=== PATIENT | male | born 1985 | race Caucasian/White ===

== ENCOUNTER 2020-01-22 19:01 | Emergency (ER) | payer BC, OTHER ==
[2020-01-22 19:06] VITALS: BP 146/93; PULSE 66; TEMP 98; BMI 28.1
[2020-01-22] MEDS ORDERED: IBUPROFEN 600 MG TABLET (FP) PO ONE (19:29)
--- NOTE | 2020-01-22 19:31 | PDOC ---
History of Present Illness - General Chief Complaint: Pain Stated Complaint: ANKLE PAIN Time Seen by Provider: 01/22/20 19:06 - History of Present Illness Initial Comments: 01/22/20 19:30 34-year-old male without comorbidities presents for evaluation of right ankle pain. He describes an inversion type injury while running and stepping into a hole during a baseball game. No prior problems with the right ankle. Past History - Medical History Allergies/Adverse Reactions: Allergies Allergy/AdvReac Type Severity Reaction Status Date / Time Penicillins Allergy Welts Unverified 01/22/20 19:05 Home Medications: Ambulatory Orders No Home Medications 0 dose .ROUTE UTDICT 04/21/12 COPD: No - Psycho-Social/Smoking History Smoking Status: No Smoking History: Never smoked Number of Cigarettes Smoked Daily: 0 - Substance Abuse Hx (Audit-C & DAST Scrn) How often the patient has a drink containing alcohol: Never Score: In Men: 4 or > Positive; In Women: 3 or > Positive: 0 Screen Result (Pos requires Nsg. Audit-10AR): Negative Review of Systems - Review of Systems Musculoskeletal: Yes: Joint Pain, Joint Swelling, Joint Stiffness *Physical Exam - Vital Signs Last Vital Signs Temp Pulse Resp BP Pulse Ox 98 F 66 18 146/93 99 01/22/20 19:03 01/22/20 19:03 01/22/20 19:03 01/22/20 19:03 01/22/20 19:03 - Physical Exam 01/22/20 19:30 Right ankle skin color and temperature normal range of motion is slightly limited. There is no tenderness about the proximal fibula or along its distal course. No tenderness about the medial lateral malleolus base of the fifth metatarsal or navicular. Mild tenderness over the ATFL without instability no gross sensorimotor deficits neurovascular intact. ED Treatment Course - RADIOLOGY Radiology Studies Ordered: Category Date Time Status ANKLE-RIGHT [RAD] Stat Radiology 01/22/20 19:06 Taken Medical Decision Making - Medical Decision Making 01/22/20 19:30 No evidence of fracture trauma or destructive process on radiograph today. Right ankle sprain. Weight-bear as tolerated with crutches and Aircast follow- up with orthopedics return to the emergency room for worsening symptoms discussed use of Tylenol and Motrin for pain and the importance of elevation I have reviewed the pathophysiology with the patient. They are in agreement with the treatment plan all questions were answered to their satisfaction. Understanding for follow-up without fail was also conveyed to the patient. Again they are in agreement. Discharge - Discharge Information Problems reviewed: Yes Clinical Impression/Diagnosis: Right ankle sprain Condition: Stable Disposition: HOME - Admission No - Follow up/Referral Referrals: Paulo Ferrell DO [Staff Physician] - - Patient Discharge Instructions Additional Instructions: You may weight-bear as tolerated with use of crutches in the Aircast Tylenol as directed for pain. Return to the emergency room for worsening symptoms. And without fail please follow-up with orthopedic surgery in 1 to 2 days for further evaluation and treatment options. - Post Discharge Activity
== END 2020-01-22 19:49 | disposition home or self-care (01) ==
LOC: JERFT 19:01
DX: S93.401A Sprain of unspecified ligament of right ankle, initial encounter (principal)
CPT/HCPCS: 73610-TC-RT-FY; 99283-25